=== PATIENT | male | born 1980 | race Asian ===

== ENCOUNTER 2020-05-12 15:14 | Emergency (ER) | payer MEDICAID ==
[~2020-05-12] VITALS: Ht 177.8 cm; Wt 99.8 kg
[2020-05-12 15:30] VITALS: BP 196/115; Ht 177.8 cm; Wt 99.8 kg
== END 2020-05-12 16:39 | disposition home or self-care (01) ==
LOC: ED 15:14
DX: S93.491A Sprain of other ligament of right ankle, initial encounter (principal); X58.XXXA Exposure to other specified factors, initial encounter; Y93.89 Activity, other specified; Y92.89 Other specified places as the place of occurrence of the external cause; Y99.8 Other external cause status
CPT/HCPCS: J1885